=== PATIENT | male | born 1950 | race Caucasian/White ===

== ENCOUNTER → 2021-07-02 | Outpatient (CLI) | payer OTHER ==
[~2021-07-02] MED LIST: ALLOPURINOL300 MG PO; ASPIRIN CHEWABL81 MG PO; DIOVAN320 MG PO; EFFEXOR XR75 MG PO; HYDROCHLOROTHIA25 MG PO; LAMICTAL5 MG PO; LIPITOR40 MG PO; METFORMIN HCL1000 M1 PO; MINIPRESS2 MG PO; NEURONTIN 400400 MG PO; NITROSTAT0.4 MG SL; NORVASC10 MG PO; OMEPRAZOLE20 MG PO; PERCOCET 7.5-31 EACH PO; PLAVIX 75 MG TA75 MG PO; PRAVACHOL20 MG PO; RELAFEN 750 MG750 MG PO; SYNTHROID25 MCG PO; TENORMIN 50 MG50 MG PO; TRICOR145 MG PO
== END ==
LOC: HEART 5 10:43
DX: I25.10 Atherosclerotic heart disease of native coronary artery without angina pectoris (principal); I10 Essential (primary) hypertension; I08.1 Rheumatic disorders of both mitral and tricuspid valves; I27.20 Pulmonary hypertension, unspecified
CPT/HCPCS: 93306

== ENCOUNTER → 2021-07-09 | Outpatient (CLI) | payer OTHER | LOC: HEART 5 07-01 08:00 → KOH-I 07-01 11:15 | DX: M51.36 Other intervertebral disc degeneration, lumbar region (principal); M47.816 Spondylosis without myelopathy or radiculopathy, lumbar region | CPT/HCPCS: 72148 ==